=== PATIENT | female | born 1990 | race Caucasian/White ===

== ENCOUNTER → 2022-08-19 | Outpatient (CLI) | payer MEDICAID, SELFPAY ==
[2022-08-19 13:08] LABS: Absolute Lymphocyte Count 1.84 X10^3/uL (0.83-4.51); Absolute Neutrophil Count 7.1 X10^3/uL (2.0-7.7); Basophil# 0.02 X10^3/uL; Basophil% 0.2 % (0-1); Eosinophil# 0.09 X10^3/uL; Eosinophils% 0.9 % (0-5); Hematocrit 41.5 % (37-47); Hemoglobin 13.6 g/dL (12.0-15.0); Lymphocyte # 1.84 X10^3/ul (0.83-4.51); Lymphocyte % 19.1 % (19-41); Mean Corp Hgb Conc 32.8 g/dL (32-36); Mean Corpuscular Hgb 28.3 pg (27.0-32.0); Mean Corpuscular Volume 86.3 fL (81-99); Mean Platelet Vol. 10.4 fl (6.2-12.0); Monocyte# 0.51 X10^3/uL; Monocyte% 5.3 % (0-10); NRBC Flagged by Analyzer 0 % (0-5); Platelet Count 288 K/mm3 (150-450); RBC Distribution Width CV 12.8 % (11.6-14.6); RBC Distribution Width SD 40.1 fl (35.1-43.9); Red Blood Count 4.81 M/mm3 (4.2-5.4); White Blood Count 9.6 K/mm3 (4.4-11.0)
[2022-08-19 14:55] LABS: HIV - WCH Non-Reactive (Nonreactive); Hepatitis B Surface Antigen Non-Reactive (Nonreactive); Hepatitis C Antibody Non-Reactive (Nonreactive); Rubella IgG Reactive (Nonreactive); Syphilis Antibodies Non-reactive
[2022-08-20 16:37] LABS: V-Zoster IgG (Immunity) 1250 index (Immune >165)
[2022-08-20 22:06] LABS: Chlamydia By Nucleic Acid AMP Negative (Negative)
[2022-08-21 11:03] LABS: Gonococcus By Nucleic Acid AMP Negative (Negative)
== END | disposition home or self-care (01) ==
LOC: WOBLAB 11:27
PROVIDERS: Visit Provider Student in an Organized Health Care Education/Training Program
DX: Z34.81 Encounter for supervision of other normal pregnancy, first trimester (principal)
CPT/HCPCS: 36415; 85025; 86703; 86762; 86780; 86787; 86803; 87086; 87088; 87340; 87491; 87591

== ENCOUNTER → 2022-12-04 | Outpatient (CLI) | payer MEDICAID, SELFPAY | END | disposition home or self-care (01) | LOC: WOBLAB 09:10 | PROVIDERS: Visit Provider Nurse Practitioner Women's Health | DX: R30.0 Dysuria (principal) | CPT/HCPCS: 87086; 87088 ==

== ENCOUNTER → 2022-12-27 | Outpatient (CLI) | payer MEDICAID, SELFPAY ==
[2022-12-27 09:41] LABS: Absolute Lymphocyte Count 1.68 X10^3/uL (0.83-4.51); Absolute Neutrophil Count 6.2 X10^3/uL (2.0-7.7); Basophil# 0.03 X10^3/uL; Basophil% 0.3 % (0-1); Eosinophils% 1.2 % (0-5); Hematocrit 38.1 % (37-47); Hemoglobin 12.5 g/dL (12.0-15.0); Lymphocyte # 1.68 X10^3/ul (0.83-4.51); Lymphocyte % 19.5 % (19-41); Mean Corp Hgb Conc 32.8 g/dL (32-36); Mean Corpuscular Hgb 28.8 pg (27.0-32.0); Mean Corpuscular Volume 87.8 fL (81-99); Mean Platelet Vol. 10.1 fl (6.2-12.0); Monocyte# 0.55 X10^3/uL; Monocyte% 6.4 % (0-10); NRBC Flagged by Analyzer 0 % (0-5); Neutrophil # 6.15 X10^3/uL (2.7-7.7); Neutrophil % 71.4 % (47-70); Platelet Count 208 K/mm3 (150-450); RBC Distribution Width CV 13.2 % (11.6-14.6); Red Blood Count 4.34 M/mm3 (4.2-5.4); White Blood Count 8.6 K/mm3 (4.4-11.0)
[2022-12-27 09:48] LABS: Glucose Challenge Gest 1H 50g 112 mg/dL (70-140)
[2022-12-27 10:13] LABS: Syphilis Antibodies Non-reactive
== END | disposition home or self-care (01) ==
PROVIDERS: Visit Provider Nurse Practitioner Women's Health
DX: Z34.82 Encounter for supervision of other normal pregnancy, second trimester (principal)
CPT/HCPCS: 36415; 82950; 85025; 86780

== ENCOUNTER → 2023-02-25 | Outpatient (CLI) | payer MEDICAID, SELFPAY ==
[2023-02-25 09:53] LABS: Absolute Lymphocyte Count 2.12 X10^3/uL (0.83-4.51); Absolute Neutrophil Count 5.5 X10^3/uL (2.0-7.7); Basophil# 0.04 X10^3/uL; Basophil% 0.4 % (0-1); Eosinophil# 0.08 X10^3/uL; Eosinophils% 0.9 % (0-5); Hematocrit 38.2 % (37-47); Hemoglobin 12.7 g/dL (12.0-15.0); Lymphocyte # 2.12 X10^3/ul (0.83-4.51); Lymphocyte % 23.6 % (19-41); Mean Corp Hgb Conc 33.2 g/dL (32-36); Mean Corpuscular Hgb 27.5 pg (27.0-32.0); Mean Corpuscular Volume 82.9 fL (81-99); Mean Platelet Vol. 10.9 fl (6.2-12.0); Monocyte# 0.97 X10^3/uL; Monocyte% 10.8 % (0-10); NRBC Flagged by Analyzer 0 % (0-5); Neutrophil # 5.51 X10^3/uL (2.7-7.7); Neutrophil % 61.4 % (47-70); Platelet Count 174 K/mm3 (150-450); RBC Distribution Width CV 13.6 % (11.6-14.6); RBC Distribution Width SD 40.1 fl (35.1-43.9); Red Blood Count 4.61 M/mm3 (4.2-5.4)
== END | disposition home or self-care (01) ==
LOC: WOBLAB 09:23
PROVIDERS: Visit Provider Student in an Organized Health Care Education/Training Program
DX: Z34.83 Encounter for supervision of other normal pregnancy, third trimester (principal)
CPT/HCPCS: 36415; 85025; 87081

== ENCOUNTER 2023-03-12 14:51 | Inpatient (IN) | payer MEDICAID, SELFPAY ==
[2023-03-12] VITALS (42 sets, daily range): BP systolic 105–188; BP diastolic 55–137; PULSE 78–137; RESP 16; TEMP 36.1–36.7; O2SAT 91–99; BMI 28.0
--- NOTE | 2023-03-12 15:08 | PCM.HP.BLA ---
History and Physical Date of Admission: 03/12/23 Chief complaint: Contractions and leakage of fluid History present illness: 32-year-old at 38 weeks and 2 days with STEPH 03/24/2023 arrives with contractions and leakage of clear fluid. Denies headache, vision changes, chest pain, shortness of breath, nausea vomit, right upper quadrant pain. Patient states good movement. Obstetric history: G1: 41-week male 8 pounds 6 ounces G2: 35 weeks male 6 pounds G3: Current Past medical history: None Medications: None Allergies: Amoxicillin, Bactrim Past surgical history: [place] tooth extraction Family history: Denies history DVT or PE Social history: Denies smoking, alcohol use, drug use Review of systems: Besides above pertinent positives a full review of systems was performed and found to be negative Physical exam: Vitals: Blood pressure 120/78 pulse 118 temperature 97.7 ?F General: Mild discomfort with contractions HEENT: Normocephalic/atraumatic no cervical of adenopathy Cardiac/respiratory: No use of accessory muscles, nonlabored breathing Abdomen: Soft, nontender, gravid Pelvic exam: /-1. Clear amniotic fluid leaking Extremities: No peripheral edema normal peripheral pulses Psych: Normal affect normal demeanor nonpressured speech Assessment and plan: Called by nursing helpdesk administrator with patient uncomfortable with contractions. Arrived to room 32-year-old at 38 weeks and 2 days with contractions and SROM while in hospital room. Cervical exam as above. Discussed results with nursing and to admit to labor and delivery for labor. Educated patient on pain control options patient would like epidural. Notified nursing. GBS negative.
[2023-03-12] MEDS: LACTATED RINGERS 500 ML 999 ML IV (15:20)
[2023-03-12] MEDS: Lactated Ringers 1,000 ML 200 ML IV (15:20)
[2023-03-12 15:37] LABS: Absolute Neutrophil Count 7.7 X10^3/uL (2.0-7.7); Basophil# 0.05 X10^3/uL; Basophil% 0.5 % (0-1); Eosinophil# 0.06 X10^3/uL; Eosinophils% 0.6 % (0-5); Hematocrit 38.4 % (37-47); Hemoglobin 12.8 g/dL (12.0-15.0); Lymphocyte % 20.3 % (19-41); Mean Corp Hgb Conc 33.3 g/dL (32-36); Mean Corpuscular Hgb 27.6 pg (27.0-32.0); Mean Corpuscular Volume 82.8 fL (81-99); Monocyte# 0.73 X10^3/uL; Monocyte% 6.7 % (0-10); NRBC Flagged by Analyzer 0 % (0-5); Neutrophil # 7.66 X10^3/uL (2.7-7.7); Neutrophil % 70.8 % (47-70); Platelet Count 198 K/mm3 (150-450); RBC Distribution Width CV 13.6 % (11.6-14.6); RBC Distribution Width SD 40.4 fl (35.1-43.9); Red Blood Count 4.64 M/mm3 (4.2-5.4); White Blood Count 10.8 K/mm3 (4.4-11.0)
[2023-03-12] MEDS: fentaNYL-bupivacaine (epidural) 100 ML BAG EPIDURAL (16:06)
[2023-03-12 16:39] LABS: Syphilis Antibodies Non-reactive
[2023-03-12] MEDS: Oxytocin 10 UNITS/ML Vial IM (17:05)
[2023-03-12] MEDS: Oxytocin 15 Units/NS 250ml 15 UNITS/250 ML IV.SOLN 83 UNITS IV (17:09)
--- NOTE | 2023-03-12 17:24 | EX.PCM.OBRPT ---
Vaginal Delivery Findings Description of Procedure: Normal spontaneous vaginal delivery of a viable male , vertex MINH. Head and shoulders delivered with ease. Cord clamped and cut. Placenta delivered via cord traction and fundal massage, placenta halted at the introitus augmented at introitus with manual extraction intact. IM and IV Pitocin given per protocol. First-degree perineal midline laceration noted and repaired in typical fashion. Urinary straight cath performed for 100 cc of drainage. EBL 300 cc Apgars 8/9
--- NOTE | 2023-03-12 19:35 | NURSING ---
At 1935. Jackson CUNHA took out epidural catheter and blue tip was intact.
[2023-03-12] MEDS: 0.9% Saline Lock 10 ML Syringe IV (20:30)
[2023-03-13] VITALS: BP 112/66; PULSE 72; RESP 16; TEMP 36.6
[2023-03-13 04:10] VITALS: BP 137/82; PULSE 84; RESP 18; TEMP 36.4
[2023-03-13 08:20] VITALS: BP 109/73; PULSE 80; RESP 18; TEMP 36.3; O2SAT 97
--- NOTE | 2023-03-13 08:50 | DCINST_ITS ---
Discharge Instructions Diet Discharge Diet: No restrictions Activity Discharge Activity: Return to Normal Activity, May Drive and May Shower May resume sexual activity in: 4-6 weeks Weight Bearing Status: Weight bearing as tolerated Dressing / Incision Call your doctor if your incision/area has: Continuous Slow Oozing and Foul Smelling Discharge Call your doctor if you observe: Fever of 101 or Higher, Shortness of breath and Chest pain Follow Up Care Please Follow Up With: Maximiliano Renteria MD When: 4 to 6 weeks Test Results: Test results from this visit will be discussed in further detail at your follow- up appointment, if applicable. Discharge Plan Admission Admit Date/Time: 03/12/23 14:51 Attending Provider: Maximiliano Renteria Discharge Orders/Prescriptions Prescriptions: No Action PNV [id number] [] 28 mg iron- 800 mcg tablet 1 tab PO DAILY Disposition Discharge Orders: Discharge Patient (Routine); Ordered 03/13/23 Ordered By: Dr. Maximiliano Renteria
--- NOTE | 2023-03-13 08:50 | PCM.PN.OB ---
Subjective Subjective No overnight complaint Objective Data Objective Data Vital Signs: Vital Signs Temp Pulse Resp BP Pulse Ox O2 Del Method 97.6 F L 84 18 137/82 H 97 Room Air 03/13/23 04:10 03/13/23 04:10 03/13/23 04:10 03/13/23 04:10 03/12/23 18:42 03/12/23 19:20 Oxygen Delivery Method Room Air Weight: 163 lb 5.8 oz Body Mass Index (BMI) 28.0 Intake & Output: Intake and Output for Last 24 Hours 03/11/23 03/12/23 03/13/23 23:59 23:59 23:59 Intake Total 1100 / 1100 Output Total 800 / 1200 400 / 400 Balance 300 / -100 -400 / -400 Lab / Micro Data 03/12/23 15:20 Labs: Laboratory Results - last 24 hr 03/12/23 15:20: WBC 10.8, RBC 4.64, Hgb 12.8, Hct 38.4, MCV 82.8, MCH 27.6, MCHC 33.3, RDW Std Deviation 40.4, RDW Coeff of [place] 13.6, Plt Count 198, MPV 11.0, Immature Gran % (Auto) 1.100 H, Neut % (Auto) 70.8 H, Lymph % (Auto) 20.3, Cocke % (Auto) 6.7, Eos % (Auto) 0.6, Baso % (Auto) 0.5, Absolute Neuts (auto) 7.7, Absolute Lymphs (auto) 2.20, Nucleated RBC % 0, Syphilis Total Ab Non-reactive, Blood Type O POSITIVE, Antibody Screen NEGATIVE Physical Exam Const alert, oriented x3, no apparent distress, average body habitus, healthy appearing and well nourished HEENT normocephalic and moist oral mucous membranes Eyes PERRL Neck full ROM Resp normal respiratory effort, no retractions and no use of accessory muscles GI GI Narrative: Soft, nontender, uterus firm and below umbilicus Extremity normal to inspection, full ROM and no clubbing, cyanosis or edema Neuro moves all extremities and no focal motor deficits Psych mental status grossly normal, affect normal, speech normal and activity/motor behavior normal Assessment & Plan (1) Vaginal delivery: PLAN: day 1. Breast-feeding. Pain well controlled. 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
[2023-03-13 12:05] VITALS: BP 118/81; PULSE 78; RESP 16; TEMP 36.4; O2SAT 98
[2023-03-13 17:18] VITALS: BP 106/73; PULSE 79; RESP 16; TEMP 36.3; O2SAT 98
== END 2023-03-13 18:00 | disposition home or self-care (01) | DRG 560 ==
LOC: WPOUT 14:59 → WP 14:59 → WPOUT 15:09 → WP 15:09
PROVIDERS: Admitting Provider Obstetrics & Gynecology; Referring Provider Obstetrics & Gynecology; Visit Provider Obstetrics & Gynecology
DX: O42.92 Full-term premature rupture of membranes, unspecified as to length of time between rupture and onset of labor (principal); Z37.0 Single live birth; O70.0 First degree perineal laceration during delivery; Z3A.38 38 weeks gestation of pregnancy
CPT/HCPCS: 59025; 59050; 85025; 86780; 86850; 86900; 86901; 99221; J7120; A4216; G0378